=== PATIENT | female | born 1945 | race Caucasian/White ===

== ENCOUNTER → 2023-07-10 08:48 | Outpatient (REF) | payer MEDICARE, OTHER, SELFPAY ==
[2023-07-10 09:42] LABS: % Basophils 0.7 % (0-2); % Eosinophils 2.6 % (0-6); % Immature Granulocytes 0.2 % (0-0.5); % Lymphocytes 39.1 % (20.5-51.1); % Monocytes 7.6 % (1.7-9.3); % Neutrophils 49.8 % (42.2-75.2); Absolute Eosinophils 0.2 10^3/uL (0-0.7); Absolute Lymphocytes 2.4 10^3/uL (1.2-3.4); Absolute Monocytes 0.5 10^3/uL (0.1-0.6); Hematocrit 37.7 % (37.0-47.0); Hemoglobin 12.6 g/dL (12.0-16.0); Mean Corp Hgb Conc. 33.4 g/dL (33.0-37.0); Mean Corpuscular Hgb 30.4 pg (27.0-31.0); Mean Corpuscular Volume 91.1 fL (81.0-99.0); Nucleated Red Blood Cells % 0 %; Platelet Count 277 10^3/uL (130-400); Red Blood Cell Count 4.14 10^6/uL (4.20-5.40); Red Cell Dist. Width 12.9 % (11.5-14.5); White Blood Cell Count 6.1 10^3/uL (4.8-10.8)
[2023-07-10 10:42] LABS: ALT (SGPT) 24 U/L (0-35); AST (SGOT) 33 U/L (14-36); Albumin 4.1 g/dl (3.5-5.0); Alkaline Phosphatase 71 U/L (38-126); Blood Urea Nitrogen 13 mg/dl (7-17); Calcium 9.8 mg/dl (8.4-10.2); Carbon Dioxide 29 mmol/L (22-30); Chloride 104 mmol/L (98-107); Glucose 82 mg/dl (70-99); Sodium 140 mmol/L (135-145); Total Cholesterol 146 mg/dl (50-199); Total Protein 6.3 g/dl (6.3-8.2); Triglyceride 78 mg/dl (10-149); Very Low Density Lipoprotein 15 mg/dl (0-30); eGFR > 60.00
[2023-07-10 10:43] LABS: Microalbumin, Random Urine 0.7 mg/dl (0.6-1.7); Microalbumin/creatinine Ratio 7.2 mg/g
[2023-07-10 10:51] LABS: HDL Cholesterol 79 mg/dl; LDL Cholesterol, Calculated 52 mg/dl
[2023-07-10 20:36] LABS: Vitamin D, 25-OH*** 63.1 ng/mL (30-80)
[2023-07-10 20:49] LABS: TSH Reflex To Free T4 3.25 uIU/ml (0.47-4.68)
[2023-07-11 01:21] LABS: Vitamin B12 360 pg/ml (239-931)
== END ==
LOC: REG 08:48
PROVIDERS: ATTENDING PHYSICIAN Nurse Practitioner Adult Health
DX: I10 Essential (primary) hypertension (principal); Z00.00 Encounter for general adult medical examination without abnormal findings; Z13.29 Encounter for screening for other suspected endocrine disorder; Z79.899 Other long term (current) drug therapy; M85.89 Other specified disorders of bone density and structure, multiple sites; E55.9 Vitamin D deficiency, unspecified; E53.9 Vitamin B deficiency, unspecified
CPT/HCPCS: 36415; 80053; 80061; 82043; 82306; 82570; 82607; 84443; 85025

== ENCOUNTER → 2023-10-09 08:09 | Outpatient (REF) | payer MEDICARE, OTHER, SELFPAY | LOC: WDC 08:09 | PROVIDERS: ATTENDING PHYSICIAN Nurse Practitioner Adult Health; FAMILY PHYSICIAN Nurse Practitioner Adult Health | DX: Z12.31 Encounter for screening mammogram for malignant neoplasm of breast (principal) | CPT/HCPCS: 77063; 77067 ==

== ENCOUNTER → 2024-03-19 07:47 | Outpatient (REF) | payer MEDICARE, OTHER, SELFPAY | LOC: DHVS 07:47 | PROVIDERS: ATTENDING PHYSICIAN Surgery Vascular Surgery; FAMILY PHYSICIAN Nurse Practitioner Adult Health | DX: I77.1 Stricture of artery (principal) | CPT/HCPCS: 93975 ==

== ENCOUNTER → 2024-04-05 09:49 | Outpatient (REF) | payer MEDICARE, OTHER, SELFPAY | LOC: WDC 09:49 | PROVIDERS: ATTENDING PHYSICIAN Nurse Practitioner Adult Health; FAMILY PHYSICIAN Nurse Practitioner Adult Health | DX: R92.2 Inconclusive mammogram (principal) | CPT/HCPCS: 76641 ==

== ENCOUNTER → 2024-07-14 08:47 | Outpatient (REF) | payer MEDICARE, OTHER, SELFPAY ==
[2024-07-14 09:39] LABS: Microalbumin, Random Urine 2.4 mg/dl (0.6-1.7); Microalbumin/creatinine Ratio 22.7 mg/g
[2024-07-14 10:19] LABS: % Basophils 0.8 % (0-2); % Eosinophils 1.7 % (0-6); % Immature Granulocytes 0.2 % (0-0.5); % Lymphocytes 44.9 % (20.5-51.1); % Monocytes 9.7 % (1.7-9.3); % Neutrophils 42.7 % (42.2-75.2); Absolute Basophils 0.1 10^3/uL (0-0.2); Absolute Eosinophils 0.1 10^3/uL (0-0.7); Absolute Lymphocytes 2.7 10^3/uL (1.2-3.4); Absolute Monocytes 0.6 10^3/uL (0.1-0.6); Absolute Neutrophils 2.5 10^3/uL (1.4-6.5); Hematocrit 40.8 % (37.0-47.0); Hemoglobin 13.4 g/dL (12.0-16.0); Mean Corp Hgb Conc. 32.8 g/dL (33.0-37.0); Mean Corpuscular Hgb 30.2 pg (27.0-31.0); Mean Corpuscular Volume 92.1 fL (81.0-99.0); Mean Platelet Volume 10.2 fL (7.4-10.4); Nucleated Red Blood Cells % 0 %; Platelet Count 289 10^3/uL (130-400); Red Blood Cell Count 4.43 10^6/uL (4.20-5.40); Red Cell Dist. Width 13.1 % (11.5-14.5); White Blood Cell Count 5.9 10^3/uL (4.8-10.8)
[2024-07-14 11:03] LABS: ALT (SGPT) 31 U/L (0-35); AST (SGOT) 33 U/L (14-36); Albumin 4.3 g/dl (3.5-5.0); Alkaline Phosphatase 85 U/L (38-126); Blood Urea Nitrogen 13 mg/dl (7-17); Carbon Dioxide 29 mmol/L (22-30); Chloride 102 mmol/L (98-107); Glucose 83 mg/dl (70-99); HDL Cholesterol 94 mg/dl; LDL Cholesterol, Calculated 48 mg/dl; Potassium 4.5 mmol/L (3.5-5.1); Sodium 138 mmol/L (135-145); Total Bilirubin 2.2 mg/dl (0.2-1.3); Total Cholesterol 156 mg/dl (50-199); Total Protein 6.6 g/dl (6.3-8.2); Triglyceride 72 mg/dl (10-149); Very Low Density Lipoprotein 14 mg/dl (0-30); eGFR > 60.00
[2024-07-14 11:14] LABS: Vitamin D, 25-OH*** 66.7 ng/mL (30-80)
[2024-07-14 11:27] LABS: TSH Reflex To Free T4 3.99 uIU/ml (0.47-4.68)
[2024-07-14 12:03] LABS: Folate > 20.0 ng/ml (2.76-20); Vitamin B12 630 pg/ml (239-931)
== END ==
LOC: REG 08:47
PROVIDERS: ATTENDING PHYSICIAN Nurse Practitioner Adult Health
DX: E80.4 Gilbert syndrome (principal); Z00.00 Encounter for general adult medical examination without abnormal findings; Z13.220 Encounter for screening for lipoid disorders; E53.8 Deficiency of other specified B group vitamins; E55.9 Vitamin D deficiency, unspecified; Z78.0 Asymptomatic menopausal state; I10 Essential (primary) hypertension
CPT/HCPCS: 36415; 80053; 80061; 82043; 82306; 82570; 82607; 82746; 84443; 85025

== ENCOUNTER → 2024-08-06 12:30 | Outpatient (REF) | payer MEDICARE, OTHER, SELFPAY ==
[2024-08-10 18:26] LABS: HPV, High Risk Not Detected; HPV, High Risk Source Anal
== END ==
LOC: CLAB 12:30
PROVIDERS: ATTENDING PHYSICIAN Surgery
DX: Z85.41 Personal history of malignant neoplasm of cervix uteri (principal)
CPT/HCPCS: 87624; 88112

== ENCOUNTER → 2024-08-20 13:55 | Outpatient (REF) | payer MEDICARE, OTHER, SELFPAY | LOC: RAD 13:55 | PROVIDERS: ATTENDING PHYSICIAN Nurse Practitioner Adult Health | DX: I10 Essential (primary) hypertension (principal); M85.89 Other specified disorders of bone density and structure, multiple sites; R00.2 Palpitations | CPT/HCPCS: 93306 ==

== ENCOUNTER → 2024-10-11 08:31 | Outpatient (REF) | payer MEDICARE, OTHER, SELFPAY | LOC: WDC 08:31 | PROVIDERS: ATTENDING PHYSICIAN Nurse Practitioner Adult Health; FAMILY PHYSICIAN Nurse Practitioner Adult Health | DX: Z12.31 Encounter for screening mammogram for malignant neoplasm of breast (principal) | CPT/HCPCS: 77063; 77067 ==

== ENCOUNTER → 2024-10-12 11:16 | Outpatient (REF) | payer MEDICARE, OTHER, SELFPAY | LOC: CLAB 11:16 | PROVIDERS: ATTENDING PHYSICIAN Surgery | DX: R85.610 Atypical squamous cells of undetermined significance on cytologic smear of anus (ASC-US) (principal) | CPT/HCPCS: 88305 ==

== ENCOUNTER → 2025-03-24 07:45 | Outpatient (REF) | payer MEDICARE, OTHER, SELFPAY | LOC: RAD 07:45 | PROVIDERS: ATTENDING PHYSICIAN Registered Nurse; FAMILY PHYSICIAN Nurse Practitioner Adult Health | DX: I77.1 Stricture of artery (principal) | CPT/HCPCS: 93975 ==

== ENCOUNTER → 2025-04-21 12:42 | Outpatient (REF) | payer MEDICARE, OTHER, SELFPAY | LOC: WDC 12:42 | PROVIDERS: ATTENDING PHYSICIAN Nurse Practitioner Adult Health; FAMILY PHYSICIAN Nurse Practitioner Adult Health | DX: Z85.3 Personal history of malignant neoplasm of breast (principal) | CPT/HCPCS: 76641 ==